=== PATIENT | male | born 1975 | race African-American/Black ===

== ENCOUNTER 2020-06-05 05:01 | Emergency (ER) | payer OTHER ==
[~2020-06-05] VITALS: Ht 180.3 cm; Wt 74.0 kg
--- NOTE | 2020-06-05 05:07 | PHYS DOC ---
Past History Past Medical History: Anxiety, Depression, Schizophrenia Past Medical History HIV x 10 yrs (SHREYA CARMONA MD) General Adult HPI: HPI: " I need in pt. rehab.. to get off drugs.. I need to see if there is anywhere I can go.,.,, I just can't seem to stop on my own...." Patient is a 44 year old male who presents with above hx and complaints polysubstance abuse, depression, HIV, paranoid thoughts and schizophrenia. Pt. has had recent suicide attempt. 1 month ago when he took all his meds. Pt. has been using marijuana daily as well as cocaine and ecstasy. Pt. denies current suicidal ideation and or homicidal ideation currently. Did advise we can talk to his at any time. Polysubstance abuse and has been hospitalized inpatient 1 time for rehab. 's phone number is [phone]. (SHREYA CARMONA MD) Review of Systems: Review of Systems: Constitutional: Denies fever or chills Eyes: Denies change in visual acuity HENT: Denies nasal congestion or sore throat Respiratory: Denies cough or shortness of breath Cardiovascular: Denies chest pain or edema GI: Denies abdominal pain, nausea, vomiting, bloody stools or diarrhea : Denies dysuria Musculoskeletal: Denies back pain or joint pain Integument: Denies rash Neurologic: Denies headache, focal weakness or sensory changes Endocrine: Denies polyuria or polydipsia Lymphatic: Denies swollen glands Psychiatric: complaints of depression, and anxiety. Complains of paranoid delusions (SHREYA CARMONA MD) Family History: Family History: Noncontributory to presentation (SHREYA CARMONA MD) Current Medications: Current Meds: See nursing for home meds-patient reports he is on a combined HIV medication which he takes 1 tablet a day. Med and dosages unknown. Takes fluoxetine 20 mg a day, takes omeprazole 40 mg a day, takes Qeutiaine 200 mg at night., Takes Olanzaine mg day. (SHREYA CARMONA MD) Allergies: Allergies: No known allergies (SHREYA CARMONA MD) Physical Exam: PE: Constitutional: Moderate acute distress, non-toxic appearance. [] HENT: Normocephalic, atraumatic, bilateral external ears normal, oropharynx moist, no oral exudates, nose normal. [] Eyes: PERRLA, EOMI, conjunctiva normal, no discharge. Glasses Neck: Normal range of motion, no tenderness, supple, no stridor. [] Cardiovascular: Bradycardia heart rate regular rhythm, no murmur [] Lungs & Thorax: Bilateral breath sounds equal apex with scattered wheezes auscultation [] Abdomen: Bowel sounds normal, soft, no tenderness, no masses, no pulsatile masses. [] Skin: Warm, dry, no erythema, no rash. Multiple tattoos Back: No tenderness, no CVA tenderness. [] Extremities: No tenderness, no cyanosis, no clubbing, ROM intact, no edema. [] Neurologic: Alert and oriented X 3, normal motor function, normal sensory function, no focal deficits noted. [] Psychologic: Affect anxious, judgement normal, mood depressed. Denies suicidal ideation ,denies homicidal ideation, does admit to paranoid delusions. Denies active hallucinations (SHREYA CARMONA MD) EKG: EKG: My interpretation EKG shows a sinus bradycardia at 59 bpm. No acute morphology [] (SHREYA CARMONA MD) Radiology/Procedures: Radiology/Procedures: [][address] [address] IMAGING REPORT Signed PATIENT: JD COHEN ACCOUNT: [id number] : 1975 LOCATION: ER AGE: 44 SEX: M EXAM STATUS: REG ER ORD. PHYSICIAN: SHREYA CARMONA MD REASON: Drug abuse, anxiety, chest tightness PROCEDURE: PORTABLE CHEST 1V EXAM: XR CHEST 1V 06/05/2020 5:41 AM CLINICAL INDICATION: Drug abuse, anxiety, chest tightness COMPARISON: None TECHNIQUE: AP view of the chest FINDINGS: The heart and mediastinum are normal. Lungs are well-expanded and clear. No consolidation, pleural effusion, or pneumothorax. Pulmonary vascularity is normal. The thoracic skeleton is intact. IMPRESSION: Normal chest radiograph. Electronically signed by: Madelin Heart MD (06/05/2020 6:03 AM) [id number] DICTATED AND SIGNED BY: MADELIN HEART MD DATE: 06/05/20 0603 CC: SHREYA CARMONA MD; PCP,UNKNOWN ~MTH0 0 (SHREYA CARMONA MD) Heart Score: HEART Score for Chest Pain: HEART Score for Chest Pain Response (Comments) Value History Slighlty/Non-Suspicious 0 ECG Normal 0 Age < 45 0 Risk Factors 1 or 2 Risk Factors 1 Troponin < Normal Limit 0 Total 1 Risk Factors: Risk Factors: DM, Current or recent (<one month) smoker, HTN, HLP, family history of CAD, obesity. Risk Scores: Score 0 - 3: 2.5% MACE over next 6 weeks - Discharge Home Score 4 - 6: 20.3% MACE over next 6 weeks - Admit for Clinical Observation Score 7 - 10: 72.7% MACE over next 6 weeks - Early Invasive Strategies (SHREYA CARMONA MD) Course & Med Decision Making: Course & Med Decision Making Pertinent Labs and Imaging studies reviewed. (See chart for details) Labs pending at shift change. Pt. endorsed to Dr. Santos at shift change. She will make disposition of pt. See Psych. report. Impression: 1. Polysubstance abuse 2. History of depression 3. History of schizophrenia [] (SHREYA CARMONA MD) Course & Med Decision Making Accepted patient care at shift change. Medically cleared and evaluated by the PAT team. Given information for follow- up with crisis center. No medical indication for admission. Patient is not suicidal homicidal and is not meet criteria for inpatient psychiatric stay. Patient agrees to plan. (MADELIN SANTOS MD) Dragon Disclaimer: Dragon Disclaimer: This electronic medical record was generated, in whole or in part, using a voice recognition dictation system. (SHREYA CARMONA MD) Departure Departure: Impression: Primary Impression: Polysubstance (excluding opioids) dependence Disposition: 01 DC HOME SELF CARE/HOMELESS Condition: STABLE Referrals: PCP,UNKNOWN (PCP) Patient Instructions: Cocaine Abuse and Chemical Dependency Additional Instructions: See instructions Dragon Disclaimer This chart was dictated in whole or in part using Voice Recognition software in a busy, high-work load, and often noisy Emergency Department environment. It may contain unintended and wholly unrecognized errors or omissions. (SHREYA CARMONA MD) Dragon Disclaimer This chart was dictated in whole or in part using Voice Recognition software in a busy, high-work load, and often noisy Emergency Department environment. It may contain unintended and wholly unrecognized errors or omissions. (SHREYA CARMONA MD) Dragon Disclaimer This chart was dictated in whole or in part using Voice Recognition software in a busy, high-work load, and often noisy Emergency Department environment. It may contain unintended and wholly unrecognized errors or omissions. (SHREYA CARMONA MD) SHREYA CARMONA MD Jun 05, 2020 05:07 MADELIN SANTOS MD Jun 05, 2020 09:19
[2020-06-05] MEDS ORDERED: IV RINGERS SOLUTION,LACTATED 1,000 ML IV SCH (05:15)
[2020-06-05 05:25] VITALS: BP 122/73
--- NOTE | 2020-06-05 05:40 | EKG ---
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
--- NOTE | 2020-06-05 06:06 | RAD ---
EXAM: XR CHEST 1V 06/05/2020 5:41 AM CLINICAL INDICATION: Drug abuse, anxiety, chest tightness COMPARISON: None TECHNIQUE: AP view of the chest FINDINGS: The heart and mediastinum are normal. Lungs are well-expanded and clear. No consolidatio n, pleural effusion, or pneumothorax. Pulmonary vascularity is normal. The thoracic skeleton is int act. IMPRESSION: Normal chest radiograph. Electronically signed by: Madelin Heart MD (06/05/2020 6:03 AM) [id number]
[2020-06-05 06:19] LABS: BASO % 0 % (0-3); EOS % 0 % (0-3); HEMATOCRIT 39.5 % (39.0-53.0); HEMOGLOBIN 13.2 g/dL (13.0-17.5); LYMPH # 2.5 x10^3/uL (1.0-4.8); LYMPH % 23 % (24-48); MEAN CORPUSCULAR HEMOGLOBIN 32 pg (25-35); MEAN CORPUSCULAR HGB CONC 33 g/dL (31-37); MEAN CORPUSCULAR VOLUME 96 fL (79-100); MONO # 0.7 x10^3/uL (0.0-1.1); MONO % 6 % (0-9); NEUT # 7.5 x10^3uL (1.8-7.7); NEUT % 70 % (31-73); PLATELET COUNT 221 x10^3/uL (140-400); RED CELL DISTRIBUTION WIDTH 14.2 % (11.5-14.5); WHITE BLOOD COUNT 10.7 x10^3/uL (4.0-11.0)
[2020-06-05 06:39] LABS: CALCIUM 8.7 mg/dL (8.5-10.1); GFR 99.2; POTASSIUM 3.5 mmol/L (3.5-5.1)
[2020-06-05 06:53] LABS: ALBUMIN 3.9 g/dL (3.4-5.0); DIRECT BILIRUBIN 0.2 mg/dL (0.0-0.2); TOTAL BILIRUBIN 0.4 mg/dL (0.2-1.0); TOTAL PROTEIN 7.5 g/dL (6.4-8.2)
--- NOTE | 2020-06-07 09:47 | NUR ---
IP: attempt to notify patient of COVID result. Unable to leave callback message.
== END 2020-06-05 09:45 | disposition home or self-care (01) ==
LOC: ER 05:01
DX: F19.10 Other psychoactive substance abuse, uncomplicated (principal); F32.9 Major depressive disorder, single episode, unspecified; F20.9 Schizophrenia, unspecified; F41.9 Anxiety disorder, unspecified; Z20.822 Contact with and (suspected) exposure to COVID-19
CPT/HCPCS: 36415; 71045; 80048; 80076; 82550; 83690; 83735; 83880; 84443; 84484; 85025; 85610; 87426; 93005; 96360; 96361; 99285; C9803; G0480; J7120; U0003